=== PATIENT | male | born 1945 | race Caucasian/White ===

== ENCOUNTER 2020-10-09 10:09 | Outpatient (CLI) | payer MEDICARE, SELFPAY ==
--- NOTE | 2020-10-10 12:08 | WPDPFTINT ---
PFT Interpretation This is a pulmonary function test with spirometry, plethysmography and diffusing capacity. The test was performed and results interpreted in accordance with the 2019 and 2005 ATS/ERS Task Force guidelines respectively using the Dylon/Jessy reference equations. Findings: Spirometry: the contour the inspiratory and expiratory flow tracing are normal. The FVC is 3.94 L, 97% predicted. The FEV1 is 2.82 L, 108% predicted. The FEV1: FVC ratio is 72%. Plethysmography: The total lung capacity is 5.66 L, 92% predicted. The functional residual capacity is 2.82 L, 84% predicted. The residual volume is 1.56 L, 60% predicted. Diffusing capacity the absolute diffusion capacity is 19.9, 95% predicted. The diffusing capacity corrected for alveolar volume is 3.78, 110% predicted. Impression: The spirometry is normal without evidence of an obstructive abnormality. The lung volumes are normal. The diffusing capacity is normal. There are no prior studies for comparison
== END 2020-10-09 10:10 | disposition home or self-care (01) ==
PROVIDERS: PCP Internal Medicine; Visit Provider Internal Medicine
DX: R05 Cough (principal)
CPT/HCPCS: 94375; 94726; 94729

== ENCOUNTER 2022-11-25 09:36 | Outpatient (CLI) | payer MEDICARE, SELFPAY ==
--- NOTE | 2022-11-25 11:00 | NEURO_ITS ---
Impression: # Complains of numbness of lower extremities. History of lower back surgeries. # Absent peroneal responses bilaterally and poor posterior tibial responses. # Needle/EMG exam not requested. # Clinical correlation recommended. Findings suggestive of higher involvement. Motor Nerve Conduction Lower Extremities Peroneal Nerve Conduction Velocity (m/sec) Terminal Latency (msec) Response Voltage(mV) Popliteal space-Ankle Ankle Extensor Dig Brevis Popliteal space Ankle Right NR NR NR NR Left NR NR NR NR Tibial Nerve Conduction Velocity (m/sec) Terminal Latency (msec) Response Voltage(mV) Popliteal space-Ankle Ankle-Extensor Dig Brevis Popliteal space Ankle Right 35 4.2 .4 .3 Left 31 4.2 .7 .6 F-waves Peroneal Nerve (ms) Tibial Nerve (ms) Right NR 53.8 Left NR 55.9 Sensory Nerve Conduction Lower Extremities Sural Nerve Stimulation Terminal Latency (msec) Ankle Response Voltage (uV) Ankle Response Velocity (m/sec) Right NR NR NR Left NR NR NR Superficial Peroneal Nerve Stimulation Terminal Latency (msec) Ankle Response Voltage (uV) Ankle Response Velocity (m/sec) Right 4.0 5 40 Left NR NR NR MTDD
== END 2022-11-25 09:37 | disposition home or self-care (01) ==
LOC: ANHNEURO 09:39
PROVIDERS: PCP Internal Medicine; Visit Provider Internal Medicine
DX: R20.2 Paresthesia of skin (principal)
CPT/HCPCS: 95910

== ENCOUNTER 2024-05-06 13:25 | Outpatient (CLI) | payer MEDICARE, SELFPAY ==
--- NOTE | ~2024-05-06 | MR_ITS ---
EXAMINATION: MR knee LT wo con DATE: 05/06/2024 14:11 INDICATION: Left knee pain TECHNIQUE: Magnetic resonance imaging (MRI) of the left knee was performed without intravenous contra st. Sequences included coronal PD-weighted FSE, coronal PD-weighted FS FSE, sagittal T2-weighted FSE , sagittal PD-weighted FS FSE and axial PD weighted fat saturated FSE. COMPARISON: None. FINDINGS: Medial compartment: Longitudinal horizontal tear extending to the inferior articular surface at the posterior horn and po sterior body of the medial meniscus. Shallow chondral ulceration along the posterior weightbearing me dial femoral condyle. Mild chondral surface regularity along the lateral margin of the central weight bearing medial femoral condyle. Lateral compartment: Small tear of indeterminate morphology along the inner third of the anterior body of the lateral meni scus. Articular cartilage is normal. Patellofemoral compartment: Shallow chondral fissuring at the cephalad aspect of the patellar apical ridge. Trochlear cartilage a ppears normal. Ligaments and tendons: Anterior and posterior cruciate ligaments are normal. The medial collateral ligament and fibular magen ateral ligament complex are normal. Patellar tendon is normal. Mild tendinopathy and small enthesophy te at the patellar insertion of the distal quadriceps tendon. The visualized medial and lateral hamst ring tendons as well as the iliotibial band are normal. Fluid: Physiologic amount of fluid in the joint space. No loose osteochondral bodies identified. Osseous/other: Small bone island at the posterior lateral femoral condyle. Marrow signal is otherwise normal with no reactive edema, fracture or pathologic marrow replacing process. IMPRESSION: 1. Medial and lateral meniscal tears. 2. 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 Reviewed, dictated and finalized at location A. IMPRESSION: 1. Medial and lateral meniscal tears. 2. 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
== END 2024-05-06 13:26 ==
LOC: GOSHIMG 13:26
PROVIDERS: PCP Orthopaedic Surgery; Visit Provider Orthopaedic Surgery
DX: S83.282A Other tear of lateral meniscus, current injury, left knee, initial encounter (principal); S83.242A Other tear of medial meniscus, current injury, left knee, initial encounter; M17.12 Unilateral primary osteoarthritis, left knee; M94.262 Chondromalacia, left knee; X58.XXXA Exposure to other specified factors, initial encounter
CPT/HCPCS: 73721

== ENCOUNTER 2025-01-27 14:41 | Outpatient (CLI) | payer MEDICARE, SELFPAY ==
--- OUTSIDE RECORDS SUMMARY | 2025-01-27 14:45 | XMS_ITS | Clinical Summary ---
Author Organization [facility] Address [address], [address] [address] Phone Care Team Providers Care Senior Pastor Name Role Phone Ronni Zhang MD Primary Care Provider Ken Virk APRN, CAR SALESMAN Unavailable [phone] Allergies Active Allergy Reactions Criticality Noted Date Comments Penicillins Rash 07/06/2023 Medications atorvastatin (LIPITOR) 10 MG Tablet Take 10 mg by mouth daily. 06/12/2023 Active tamsulosin (FLOMAX) 0.4 MG Capsule Take 1 Capsule by mouth daily. 90 Capsule 03/10/2024 Active gabapentin (NEURONTIN) 100 MG Capsule Take 100 mg by mouth 2 times daily. 06/27/2024 Active Social History Tobacco Use Types Packs/Day Years Used Date Smoking Tobacco: Former Cigarettes Smokeless Tobacco: Never Tobacco Cessation:Counseling Given: No Sex and Gender Information Value Date Recorded Sex Assigned at Not on file Legal Sex Male 12:45 PM CDT Gender Identity Not on file Sexual Orientation Not on file Last Filed Vital Signs Vital Sign Reading Time Taken Comments Blood Pressure 121/68 07/26/2024 10:19 AM POWERHOUSE LABORER Pulse 87 07/26/2024 10:19 AM POWERHOUSE LABORER Temperature - - Respiratory Rate 20 07/26/2024 10:19 AM POWERHOUSE LABORER Oxygen Saturation 97% 07/26/2024 10:19 AM POWERHOUSE LABORER Inhaled Oxygen Concentration - - Weight 95.3 kg (210 lb) 07/26/2024 10:19 AM POWERHOUSE LABORER Height 175.3 cm (5' 9 ) 07/26/2024 10:19 AM POWERHOUSE LABORER Body Mass Index 31.01 07/26/2024 10:19 AM POWERHOUSE LABORER Plan of Treatment Upcoming Encounters Date Type Department Care Team (Late st Contact Info) Description 07/25/2025 1:15 PM POWERHOUSE LABORER Office Visit [facility] [address] [place] [address] Ken Virk, BRAKE PRESS OPERATOR, CAR SALESMAN [address] [place] [address] Health Maintenance Due Date Last Done Comments TdaP Immunization 1945 SARS-COV-2 Immunization ( season) 2024 06/10/2024, 07/10/2023, 07/08/2022, Additional history exists Pneumococcal Immunization (50+ years) Completed 01/04/2019, 05/18/2013 Hepatitis C Virus (HCV) Screening Completed 03/21/2021 Zoster Immunization Completed 02/06/2023, 12/10/2022, 04/21/2011 Respiratory Syncytial Virus (RSV) Immunization (Adult) Completed 06/25/2023 Influenza Immunization Completed , 06/25/2023, 07/08/2022, Additional history exists Hepatitis B Immunization Aged Out No longer eligible based on patient's age to complete this topic Meningococcal Immunization (ACWY) Aged Out No longer eligible based on patient's age to complete this topic Rotavirus Immunization Aged Out No lo nger eligible based on patient's age to complete this topic Insurance [id number] Care Teams Senior Pastor Relationship Specialty Start Date End Date Ronni Zhang MD PCP - General Internal Medicine 05/26/23 Ken Virk APRN, CAR SALESMAN [address] [place] [address] Nurse Practitioner Advanced Practice Nurse 07/20/23
--- OUTSIDE RECORDS SUMMARY | 2025-01-27 14:45 | XMS_ITS | Continuity of Care Document ---
Author Organization [facility] Address [address] [place] [address] [address] [place] [address] Phone Care Team Providers Care Wheelabrator Operator Name Role Phone Iram Abraham Unavailable Unavailable Procedures Procedure Date Eye Exam & Treatment Refraction Eye Exam & Treatment Refraction Eye Exam & Treatment Refraction Advance Directives Directive Yes / No Effective Date File Name No Information Encounters Encounter Description Practice Location Reason(s) For Visit Diagnoses Date Provider Providers Copied on Encounter [facility], [address] [place] [address] [address], [place], [place], [id number], tel:[phone] [facility] No Information 6-201 0 Leigh Atwood [address] , [address], [place], [place], [facility], . tel:[phone] [facility], [address] [place] [address] [address], [place], [place], [id number], [place] tel:[phone] [facility] No Information 2-200 9 Leigh Atwood [address] , [address], [place], [place], [facility], [place]. tel:[phone] [facility], [address] [place] [address] [address], [place], [place], [id number], [place] tel:[phone] [facility] No Information 0-200 8 Leigh Atwood [address] , [address], [place], [address], [place]. tel:[phone] Family History Family Member Type Diagnosis Age At Onset No Information Payers Payer name Insurance type Covered democrat ID Authoriza tion(s) [place] [id number] Social History Type Description Quantity Date Captured Comments Sex Male Smoking Status No Information Chief Complaint And Reason For Visit No Information Reason For Referral Reason For Referral No Information History Of Present Illness Encounter Date Complaint History Of Prese nt Illness No Information Functional Status Date Functional Assessmen t No Information Instructions Date Instruction Additional Infor mation No Information Assessments Type Assessment Date No Information Patient Care Teams Name Effective Dates (start - stop) Status Members No Information
--- OUTSIDE RECORDS SUMMARY | 2025-01-27 14:45 | XMS_ITS | Data Portability ---
[facility] [address] [facility] [place] [address] Care Team Providers Care Pharmacy Clinical Specialist Name Role Phone OLEG ZHANG Primary Care Provider [phone] Assessment Encounter Date Assessment Date Assessment LastModified by Organization Details LastModified Time 12/29/2023 12/29/2023 Dyslipidemia atorvastatin chronic pain gabapentin BPH tamsulosin chronic dermatitis hydrocortisone obtain old records continue current therapy all questions answered see me in 4 months. [email or web address] Not available 12/29/2023 22:14:15 04/26/2024 04/26/2024 healthy lifestyl e care instructions blood work chest x-ray Lexiscan stress test echo follow up with me in a month. EKG shows a normal sinus rhythm with no acute changes [email or web address] Not available 05/14/2024 20:21:35 05/24/2024 05/24/2024 obtain PFTs and LD CT reports complete echo follow up 3 months [email or web address] Not available 05/28/2024 20:50:01 06/28/2024 06/28/[address] he is due. 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 Gabapentin. Tamsulosin. Pulmonary consult. Healthy lifestyle care instructions. All questions He will follow up in 4 [email or web address] Not available 11/05/2024 22:17:41 Plan of Treatment Reminders Order Date Submit Date Provider Last Modified By Organization Details Last Modified Time Details Appointments ANY 15 2024 01:15P Cassandra Zhang MD Not available Not available Not available Lab CBC w/ auto diff 2023 024 [facility], [address] [facility] [address], [place], [address], 04/27/2024 08:42:27 CMP, serum or plasma 2023 024 [facility], [address] [facility] [address], [place], [address], 04/27/2024 08:42:25 lipid panel, serum 2023 024 [facility], [address] [facility] [address], [place], [address], 04/27/2024 08:42:26 Referral pulmonolo gist referral 2024 025 [facility]ology[facility], [address], [address], [place], [address], 01/04/2025 12:28:10 Procedures colonosco py screening (PROC) 2023 024 [facility], [address], [address], [place], [address], 10/25/2024 14:42:02 lexiscan cardiolit e stress test (PROC) 2023 024 [facility] (Outpatient Orders), [address], [place], [address], 05/13/2024 11:21:59 Surgeries None recorded. Imaging US, echocardi ogram 2023 024 [facility], [address], [address], [place], [address], 06/15/2024 22:00:10 XR, chest, 2 view [address] ([facility]), [address] [facility] [place], [place], [address], 04/26/2024 16:56:33 Medication Orders None recorded. Patient TargetsNo targets recorded. 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 Referring Physician: Oleg Zhang, Internal Medicine, Encounter Date: 11/01/2024 Results Created Date Observation Date Name Description Value Unit Range Abnormal Flag Note LastModifiedBy Organization Detail LastModifiedTime 04/26/20 24 04/27/2024 CMP14 glucose 100 mg/dL 70-99 above high normal Not Available [facility] ([facility]) [address] [place], [address], 04/27/2024 08:42:25 04/26/20 24 04/27/2024 CMP14 BUN 15 mg/dL 8-27 Not Available [facility] ([facility]) [address] [place], [address], 04/27/2024 08:42:25 04/26/20 24 04/27/2024 CMP14 creatinine 0.99 mg/dL 0.76-1 .27 Not Available [facility] ([facility]) [address] [place], [address], 04/27/2024 08:42:25 04/26/20 24 04/27/2024 CMP14 eGFR 77 mL/mi n/1.7 3 >59 Not Available [facility] ([facility]) [address] [place], [address], 04/27/2024 08:42:25 04/26/20 24 04/27/2024 CMP14 BUN/creatini ne ratio 15 10-24 Not Available [facility] ([facility]) [address] [facility] [place], [address], 04/27/2024 08:42:25 04/26/20 24 04/27/2024 CMP14 sodium 137 mmol/ L 134-14 4 Not Available [facility] ([facility]) [address] [facility] [place], [address], 04/27/2024 08:42:25 04/26/20 24 04/27/2024 CMP14 potassium 4.8 mmol/ L 3.5-5. 2 Not Available [facility] ([facility]) [address] [facility] [place], [address], 04/27/2024 08:42:25 04/26/20 24 04/27/2024 CMP14 chloride 101 mmol/ L 96-106 Not Available [facility] ([facility]) [address] [facility] [place], [address], 04/27/2024 08:42:25 04/26/20 24 04/27/2024 CMP14 carbon dioxide, total 24 mmol/ L 20-29 Not Available [facility] ([facility]) [address] [facility], [place], [address], 04/27/2024 08:42:25 04/26/20 24 04/27/2024 CMP14 calcium 9.7 mg/dL 8.6-10 .2 Not Available [facility] ([facility]) [address] [facility] [place], [address], 04/27/2024 08:42:25 04/26/20 24 04/27/2024 CMP14 protein, total 6.8 g/dL 6.0-8. 5 Not Available [facility] ([facility]) [address] [facility] [place], [address], 04/27/2024 08:42:25 04/26/20 24 04/27/2024 CMP14 albumin 4.1 g/dL 3.7-4. 7 Not Available [facility] ([facility]) [address] [facility] [place], [address], 04/27/2024 08:42:25 04/26/20 24 04/27/2024 CMP14 globulin, total 2.7 g/dL 1.5-4. 5 Not Available [facility] ([facility]) [address] [facility] [place], [address], 04/27/2024 08:42:25 04/26/20 24 04/27/2024 CMP14 bilirubin, total 1.0 mg/dL 0.0-1. 2 Not Available [facility] ([facility]) [address] [facility], [place], [address], 04/27/2024 08:42:25 04/26/20 24 04/27/2024 CMP14 alkaline phosphatase 103 IU/L 44-121 Not Available [facility] ([facility]) [address] [facility] [place], [address], 04/27/2024 08:42:25 04/26/20 24 04/27/2024 CMP14 AST (SGOT) 20 IU/L 0-40 Not Avail able [facility] ([facility]) [address] [facility] [place], [address], 04/27/2024 08:42:25 04/26/20 24 04/27/2024 CMP14 ALT (SGPT) 10 IU/L 0-44 Not Avail able [facility] ([facility]) [address] [facility] [place], [address], 04/27/2024 08:42:25 04/26/20 24 04/27/2024 LIPID PANEL cholesterol, total 175 mg/dL 100-19 9 Not Available [facility] ([facility]) [address] [facility] [place], [address], 04/27/2024 08:42:26 04/26/20 24 04/27/2024 LIPID PANEL triglyceride s 66 mg/dL 0-149 Not Available [facility] ([facility]) [address] [place], [address], 04/27/2024 08:42:26 04/26/20 24 04/27/2024 LIPID PANEL HDL cholesterol 54 mg/dL >39 Not Available [facility] ([facility]) [address] [place], [address], 04/27/2024 08:42:26 04/26/20 24 04/27/2024 LIPID PANEL VLDL cholesterol hanna 13 mg/dL 5-40 Not Available [facility] ([facility]) [address] [place], [address], 04/27/2024 08:42:26 04/26/20 24 04/27/2024 LIPID PANEL LDL chol calc ([facility]) 108 mg/dL 0-99 above high normal Not Available [facility] ([facility]) [address] [place], [address], 04/27/2024 08:42:26 04/26/20 24 04/27/2024 CBC WITH DIFFE RENTI AL/PL ATELE T WBC 6.3 x10e3 /uL 3.4-10 .8 Not Available [facility] ([facility]) [address] [place], [address], 04/27/2024 08:42:27 04/26/20 24 04/27/2024 CBC WITH DIFFE RENTI AL/PL ATELE T RBC 5.11 x10e6 /uL 4.14-5 .80 Not Available [facility] ([facility]) [address] [place], [address], 04/27/2024 08:42:27 04/26/20 24 04/27/2024 CBC WITH DIFFE RENTI AL/PL ATELE T hemoglobin 14.7 g/dL 13.0-1 7.7 Not Available [facility] ([facility]) [address] [facility], [place], [address], 04/27/2024 08:42:27 04/26/20 24 04/27/2024 CBC WITH DIFFE RENTI AL/PL ATELE T hematocrit 46.0 % 37.5-5 1.0 Not Available [facility] ([facility]) [address] [facility], [place], [address], 04/27/2024 08:42:27 04/26/20 24 04/27/2024 CBC WITH DIFFE RENTI AL/PL ATELE T MCV 90 fL 79-97 Not Available [facility] ([facility]) [address] [facility], [place], [address], 04/27/2024 08:42:27 04/26/20 24 04/27/2024 CBC WITH DIFFE RENTI AL/PL ATELE T MCH 28.8 pg 26.6-3 3.0 Not Available [facility] ([facility]) [address] [facility], [place], [address], 04/27/2024 08:42:27 04/26/20 24 04/27/2024 CBC WITH DIFFE RENTI AL/PL ATELE T MCHC 32.0 g/dL 31.5-3 5.7 Not Available [facility] ([facility]) [address] [facility], [place], [address], 04/27/2024 08:42:27 04/26/20 24 04/27/2024 CBC WITH DIFFE RENTI AL/PL ATELE T RDW 13.3 % 11.6-1 5.4 Not Available [facility] ([facility]) [address] [facility], [place], [address], 04/27/2024 08:42:27 04/26/20 24 04/27/2024 CBC WITH DIFFE RENTI AL/PL ATELE T platelets 203 x10e3 /uL 150-45 0 Not Available [facility] ([facility]) [address] [facility], [place], [address], 04/27/2024 08:42:27 04/26/20 24 04/27/2024 CBC WITH DIFFE RENTI AL/PL ATELE T neutrophils 63 % notest ab. Not Available [facility] ([facility]) [address] [facility], [place], [address], 04/27/2024 08:42:27 04/26/20 24 04/27/2024 CBC WITH DIFFE RENTI AL/PL ATELE T lymphs 27 % notest ab. Not Available [facility] ([facility]) [address] [facility], [place], [address], 04/27/2024 08:42:27 04/26/20 24 04/27/2024 CBC WITH DIFFE RENTI AL/PL ATELE T monocytes 8 % notest ab. Not Available [facility] ([facility]) [address] [facility], [place], [address], 04/27/2024 08:42:27 04/26/20 24 04/27/2024 CBC WITH DIFFE RENTI AL/PL ATELE T eos 1 % notest ab. Not Available [facility] ([facility]) [address] [facility], [place], [address], 04/27/2024 08:42:27 04/26/20 24 04/27/2024 CBC WITH DIFFE RENTI AL/PL ATELE T basos 1 % notest ab. Not Available [facility] ([facility]) [address] [facility], [place], [address], 04/27/2024 08:42:27 04/26/20 24 04/27/2024 CBC WITH DIFFE RENTI AL/PL ATELE T neutrophils (absolute) 3.9 x10e3 /uL 1.4-7. 0 Not Available [facility] ([facility]) [address] [facility], [place], [address], 04/27/2024 08:42:27 04/26/20 24 04/27/2024 CBC WITH DIFFE RENTI AL/PL ATELE T lymphs (absolute) 1.7 x10e3 /uL 0.7-3. 1 Not Available [facility] ([facility]) [address] [facility], [place], [address], 04/27/2024 08:42:27 04/26/20 24 04/27/2024 CBC WITH DIFFE RENTI AL/PL ATELE T monocytes(ab solute) 0.5 x10e3 /uL 0.1-0. 9 Not Available [facility] ([facility]) [address] [facility], [place], [address], 04/27/2024 08:42:27 04/26/20 24 04/27/2024 CBC WITH DIFFE RENTI AL/PL ATELE T eos (absolute) 0.1 x10e3 /uL 0.0-0. 4 Not Available [facility] ([facility]) [address] [facility], [place], [address], 04/27/2024 08:42:27 04/26/20 24 04/27/2024 CBC WITH DIFFE RENTI AL/PL ATELE T baso (absolute) 0.1 x10e3 /uL 0.0-0. 2 Not Available [facility] ([facility]) [address] [facility], [place], [address], 04/27/2024 08:42:27 04/26/20 24 04/27/2024 CBC WITH DIFFE RENTI AL/PL ATELE T immature granulocytes 0 % notest ab. Not Available [facility] ([facility]) [address] [facility], [place], [address], 04/27/2024 08:42:27 04/26/20 24 04/27/2024 CBC WITH DIFFE RENTI AL/PL ATELE T immature grans (abs) 0.0 x10e3 /uL 0.0-0. 1 Not Available [facility] ([facility]) [address], [place], [address], 04/27/2024 08:42:27 04/26/20 24 04/26/2024 XR, chest , 2 view No observ ation record ed. [address] [place], [address], 05/28/2024 20:48:51 05/13/20 kishor can cardi olite stres s test (PROC ) No observ ation record ed. [address] (Outpatient Orders) [address] [place], [address], 05/28/2024 20:48:36 05/13/20 24 05/13/2024 kishor can cardi olite stres s test (PROC ) No observ ation record ed. [facility] [address] [place], [address], 06/15/2024 17:03:15 06/15/20 24 06/14/2024 , echo ardio gram No observ ation record ed. [facility] [address], [place], [address], 06/28/2024 12:14:35 06/28/20 24 06/01/2018 colon oscop y proce dure (PROC ) No observ ation record ed. [facility] Not Available 2023 15:31:37 01/13/20 25 02/03/2023 MRI, cervi hanna spine , w/o contr ast No observ ation record ed. [facility] Not Available 2024 10:59:38 Result Notes None recorded. Problems Name Problem SNOMED Code Status Onset Date Resolution Date Notes Provider Name and Address Organization Details Recorded Time Hyperlipidemia 76748719 Active 2023 Oleg Zhang MD Attn: Swathi g,[address], [place], [address], [facility] 15:32:14 Benign prostatic hyperplasia without outflow obstruction 822340772 Active 2023 Oleg Zhang MD Attn: Swathi haas,[address], [place], [address], [facility] 4 15:32:15 Chronic low back pain 088799789 Active 2023 Oleg Zhang MD Attn: Swathi haas,[address], [place], [address], [facility] 4 15:32:29 Problem Notes None recorded. Procedures Surgical History Date Name Laterality Status Provider Name and Address Organization Details Recorded Time vasectomy completed RADHA John [facility] 12/29/2023 14:52:44 Imaging Results Imaging Date Name Status LastModified by Organization Details LastModified Time 04/26/2024 XR, chest, 2 view completed [address] [place], [address], 05/28/2024 20:48:51 05/13/2024 lexiscan cardiolite stress test (PROC) completed [address] (Outpatient Orders) [address] [place], [address], 05/28/2024 20:48:36 05/13/2024 lexiscan cardiolite stress test (PROC) completed [facility] [address] [place], [address], 06/15/2024 17:03:15 06/14/2024 US, echocardiogram completed [facility] [address], [place], [address], 06/28/2024 12:14:35 06/01/2018 colonoscopy procedure (PROC) completed [facility] Information not available 06/28/2024 15:31:37 02/03/2023 MRI, cervical spine, w/o contrast completed [facility] Information not available 01/12/2025 10:59:38 Procedure Notes None recorded. Medical Equipment None Reported. Allergies Allergen ID Allergen Name Allergen Category Reaction Reaction Severity Criticality Documentation Date Start Date Code Code System Note Provider Name and Address Organization Details Recorded Time 256714 Product containin g penicilli n (product) medicatio n rash Not available Not available 12/29/2023 [id number] Selena Kelley RADHA martínez, [place] - [facility] 4 14:52:40 Medications Name Sig Start Date Stop Date Status Note LastModified by Organization Details LastModified Time prednisone 10 mg tablet TAKE 1 TABLET BY MOUTH TWICE A DAY 05/24 completed Not Available Not Available Not Available atorvastati n 10 mg tablet TAKE 1 TABLET BY MOUTH EVERY DAY 2024 active Not Available Not Available Not Avai lable azithromyci n 250 mg tablet TAKE 2 TABLETS BY MOUTH TODAY, THEN TAKE 1 TABLET DAILY FOR 4 DAYS DIRECTED active Not Available Not Available No t Available clobetasol 0.05 % topical cream APPLY TO AFFECTED AREA TWICE A DAY FOR 14 DAYS active PRN Not Available Not Available No t Available meloxicam 7.5 mg tablet TAKE 1 TABLET BY MOUTH TWICE A DAY FOR 30 DAYS 05/24 completed Not Available Not Available Not Available tamsulosin 0.4 mg capsule TAKE 1 CAPSULE BY MOUTH EVERY DAY 2024 active Not Available Not Available Not Avai lable cephalexin 500 mg capsule TAKE 1 CAPSULE BY MOUTH EVERY 6 HOURS UNTIL GONE 12/28 completed Not Available Not Available Not Available hydrocortis one 2.5 % topical cream APPLY 1 APPLICATI ON ONTO THE FACE RASH TWICE DAILY NEEDED active Not Available Not Available No t Available gabapentin 100 mg capsule TAKE 1 CAPSULE BY MOUTH TWICE A DAY active Not Available Not Available No t Available methylpredn isolone 4 mg tablets in a dose pack TAKE 6 TABLETS ON DAY 1 DIRECTED ON PACKAGE AND DECREASE BY 1 TAB EACH DAY FOR A TOTAL OF 6 DAYS active Not Available Not Available No t Available sodium fluoride 1.1 % dental paste USE PEA-SIZED AMOUNT TO BRUSH TEETH MORNING AND EVENING. SPIT OUT EXCESS. DO NOT SWALLOW active Not Available Not Available No t Available Vitals Date Recorded Body height Body mass index (BMI) Body weight Heart rate Oxygen saturation Oxygen saturation in Arterial blood by Pulse oximetry Systolic blood pressure Diastolic blood pressure Provider Name and Address Organization Details Last Updated DateTime 4 175.9 cm 30.1 kg/m2 92107.4 4 g 67 /min 97 % 97 % 126 mm[Hg] 74 mm[Hg] RADHA John [facility] 4 14:38:58 Date Recorded Body height Body mass index (BMI) Body weight Heart rate Oxygen saturation Oxygen saturation in Arterial blood by Pulse oximetry Systolic blood pressure Diastolic blood pressure Provider Name and Address Organization Details Last Updated DateTime 4 175.9 cm 30.3 kg/m2 17837.6 2 g 79 /min 97 % 97 % 102 mm[Hg] 64 mm[Hg] Amaya Calle MA [facility] 4 14:06:07 Date Recorded Body height Body mass index (BMI) Body weight Heart rate Oxygen saturation Oxygen saturation in Arterial blood by Pulse oximetry Systolic blood pressure Diastolic blood pressure Provider Name and Address Organization Details Last Updated DateTime 4 175.9 cm 30.1 kg/m2 32126.8 7 g 79 /min 94 % 94 % 136 mm[Hg] 66 mm[Hg] Rosa Cr MA [facility] 4 14:08:44 Date Recorded Body height Body mass index (BMI) Body weight Heart rate Oxygen saturation Oxygen saturation in Arterial blood by Pulse oximetry Systolic blood pressure Diastolic blood pressure Provider Name and Address Organization Details Last Updated DateTime 4 175.9 cm 30.1 kg/m2 49214.6 5 g 78 /min 97 % 97 % 118 mm[Hg] 62 mm[Hg] Rosa Cr MA [facility] 4 14:16:15 Date Recorded Body height Body mass index (BMI) Body weight Heart rate Oxygen saturation Oxygen saturation in Arterial blood by Pulse oximetry Systolic blood pressure Diastolic blood pressure Provider Name and Address Organization Details Last Updated DateTime 5 175.9 cm 30.2 kg/m2 38153.3 1 g 84 /min 98 % 98 % 120 mm[Hg] 68 mm[Hg] Amaya Calle MA [facility] 5 14:26:12 Social History Question Answer Notes LastModified by Organizat ion Details LastModified Time Tobacco Smoking Status Former Smoker quit 40 yrs ago 03/20/1983 last cigarette RADHA John null, [facility] 12/29/2023 14:34:43 Do You Have An Advance Directive? Yes Information not available 04/26/2024 What Is Your Level Of Alcohol Consumption? None Information not available 04/26/2024 Are You Blind Or Do You Have Difficulty Seeing? No Information not available 04/26/2024 What Is Your Level Of Caffeine Consumption? Moderate Coffee, Soda, Tea Information not available 04/26/2024 In The 14 Days Before Symptom Onset, Have You Had Close Contact With A Laboratory-confir med COVID-19 While That Case Was Ill? No Information not available 04/26/2024 In The 14 Days Before Symptom Onset, Have You Had Close Contact With A Person Who Is Under Investigation For COVID-19 While That Person Was Ill? No Information not available 04/26/2024 Have You Been To An Area Known To Be High Risk For COVID-19? No Information not available 04/26/2024 Are You Currently Employed? No Information not available 04/26/2024 Are You Deaf Or Do You Have Serious Difficulty Hearing? No Information not available 04/26/2024 What Type Of Diet Are You Following? REGULAR Information not available 04/26/2024 Are There Any Guns Present In Your Home? No Information not available 04/26/2024 What Was The Date Of Your Most Recent Tobacco Screening? 11/01/2024 Information not available 11/01/2024 Do You Use Your Seat Belt Or Car Seat Routinely? Yes Information not available 04/26/2024 Do You Have Smoke And Carbon Monoxide Detectors In Your Home? Yes Information not available 04/26/2024 How Much Tobacco Do You Smoke? No Information not available 12/29/2023 Do You Use Any Illicit Or Recreational Drugs? No Information not available 04/26/2024 Do You Use Sunscreen Routinely? Yes Information not available 04/26/2024 Has Tobacco Cessation Counseling Been Provided? No Information not available 04/26/2024 How Many Years Have You Smoked Tobacco? 20 Information not available 12/29/2023 Do You Or Have You Ever Used Any Other Forms Of Tobacco Or Nicotine? No Information not available 04/26/2024 Sex: Male Functional Status Question Answer Note LastModified by Organization D etails LastModified Time Are you able to care for yourself? Yes Information n ot available 04/26/2024 What is your exercise level? None Information not available 04/26/2024 Mental Status None recorded. Family History Nothing Reported. Medical History No medical history recorded. Immunizations Vaccine Type Date Status Note Provider Nam e and Address Organization Details Recorded Time zoster recombinant 3 completed Selena Kelley R[place], [place] [facility] 12/29/2023 14:53:00 zoster recombinant 3 completed Selena Kelley [place] [facility] 12/29/2023 14:53:00 Influenza, high-dose, quadrivalent, PF 1 completed Selena Kelley [place] [facility] 12/29/2023 14:53:00 Influenza, adjuvanted, quadrivalent, PF 3 completed Selena Kelley [place] [facility] 12/29/2023 14:53:00 Influenza, adjuvanted, quadrivalent, PF 2 completed VINCENT JohnA [place] [facility] 12/29/2023 14:53:00 COVID-19, mRNA, LNP-S, PF, 100 mcg/0.5mL dose or 50 mcg/0.25mL dose 1 completed Selena Kelley [place] [facility] 12/29/2023 14:53:00 COVID-19, mRNA, LNP-S, PF, 100 mcg/0.5mL dose or 50 mcg/0.25mL dose 1 completed [place]A [place] [facility] 12/29/2023 14:53:00 COVID-19, mRNA, LNP-S, PF, 100 mcg/0.5mL dose or 50 mcg/0.25mL dose 2 completed Selena Kelley [place] [facility] 12/29/2023 14:53:00 COVID-19, mRNA, LNP-S, PF, 100 mcg/0.5mL dose or 50 mcg/0.25mL dose 1 completed VINCENT JohnA [place]aur[place], [place] [facility] 12/29/2023 14:53:00 COVID-19, mRNA, LNP-S, bivalent, PF, 50 mcg/0.5 mL or 25mcg/0.25 mL dose 2 completed Selena Kelley RMEvita martínez, [place] [facility] 12/29/2023 14:53:00 RSV, bivalent, protein subunit RSVpreF, diluent reconstituted, 0.5 mL, PF 3 completed RADHA [place] [facility] 12/29/2023 14:53:00 COVID-19, mRNA, LNP-S, PF, daniel-sucrose, 30 mcg/0.3 mL 3 completed Selena Kelley RMA [place] [facility] 12/29/2023 14:53:00 pneumococcal polysaccharide PPV23 3 completed Selena Kelley [place] [facility] 12/29/2023 14:53:00 Pneumococcal conjugate PCV 13 9 completed Selena Kelley [place] [facility] 12/29/2023 14:53:00 zoster live 1 completed RADHA [place] [facility] 12/29/2023 14:53:00 Influenza, high-dose, trivalent, PF 4 completed Selena Kelley RMA [place], [place] [facility] 12/29/2023 14:53:00 Influenza, high-dose, trivalent, PF 7 completed Selena Kelley R[place] [facility] 12/29/2023 14:53:00 Influenza, high-dose, trivalent, PF 6 completed Selena Kelley RMEv[place] [facility] 12/29/2023 14:53:00 Influenza, high-dose, trivalent, PF 8 completed Selena Kelley [place] [facility] 12/29/2023 14:53:00 Influenza, split virus, quadrivalent, PF 5 completed Selena Kelley [place] [facility] 12/29/2023 14:53:00 COVID-19, mRNA, LNP-S, PF, daniel-sucrose, 30 mcg/0.3 mL 4 completed Alannah Garnica [place] [facility] 11/01/2024 10:00:53 Influenza, high-dose, trivalent, PF 4 completed Alannah Garnica [place] [facility] 11/01/2024 10:00:53 Past Encounters Encounter ID Performer Location Encounter Start Date Encounter Closed Date Diagnosis/Indication Diagnosis SNOMED-CT Code Diagnosis ICD10 Code Diagnosis Note [id number] Oleg Zhang MD [facility] (Adult Med) [address] [place] [address] [phone] 12/29/2023 14:09:30 12/29/2023 15:53:43 Hyperlipidemia 15377059 E78.5 Benign pro static hyperplasia without outflow obstruction 394595741 N40.0 Chronic low back pain 27 9897034 M54.50 [id number] Oleg Zhang MD [facility] (Adult Med) [address] [place] [address] [id number] 04/26/2024 13:51:17 04/26/2024 15:21:47 Obesity 278553565 E66.8 Hyperlipidemia 08995445 E78.5 Chest pain 96094371 R07. 9 [id number] [facility] [address] [place] [address] [id number] 05/24/2024 13:48:53 05/24/2024 14:44:58 Dyspnea 767109205 R06.00 Hyperlipidemia 97792623 E78.5 Chronic low back pain 27 4236391 M54.50 Benign pro static hyperplasia without outflow obstruction 571229113 N40.0 [id number] Oleg Zhang MD [facility] (Adult Med) [address] [place] [address] [id number] [id number] 06/28/2024 14:00:23 06/28/2024 15:09:11 Screening for malignant neoplasm of colon 146123392 Z12.11 Hyperlipidemia 00778031 E78.5 Chronic low back pain 27 2063622 M54.50 Benign pro static hyperplasia without outflow obstruction 957804450 N40.0 [id number] Oleg Zhang MD [facility] (Adult Med) [address] [place] [address] [id number] 11/01/2024 14:16:39 11/01/2024 15:01:47 Body mass index 30+ - obesity 656953909 Z68.30 Obesity 473395697 E66.9 Chronic cough 86842903 R 05.3 Hyperlipidemia 84784567 E78.5 Chronic low back pain 27 0578921 M54.50 Benign pro static hyperplasia without outflow obstruction 902597323 N40.0 Health Concerns Section Related Observation LastModified by Organization Detai ls LastModified Time None Recorded Concern Status LastModified by Organization Details LastModified Time None Recorded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
--- OUTSIDE RECORDS SUMMARY | 2025-01-27 14:45 | XMS_ITS | Continuity of Care Document ---
Author Organization [facility] Address [address] [place] [address] Phone Care Team Providers Care Starter Cup Powder Mixer Name Role Phone Grayson Guy MD Unavailable Unavailable Allergies, Adverse Reactions, Alerts Substance Reaction Status Criticality PENICILLIN Rash Active No Information Medications Medication Instructions Dosage Effective Dates (start - stop) Status Comments [place] 5 mg-325 mg tablet take 1- 2 tablets by oral route every 6 hours as needed for pain - Active meloxicam 15 mg tablet take 1 tablet (15 MG) by oral route every day with food - Active atorvastatin 10 mg tablet take 1 tablet by oral route every day 10 MG - Active Procedures Procedure Date POSTOP FOLLOW-UP VISIT INCISE FINGER TENDON SHEATH INCISE FINGER TENDON SHEATH OFFICE/OUTPATIENT VISIT EST OFFICE/OUTPATIENT VISIT EST RADEX PATIENCE COMPL MINIMUM 2 VIEWS 018 RADEX PATIENCE COMPL MINIMUM 2 VIEWS 018 RADEX PELVIS 1/2 VIEWS OFFICE/OUTPATIENT VISIT NEW Advance Directives Directive Yes / No Effective Date File Name No Information Encounters Encounter Description Practice Location Reason(s) For Visit Diagnoses Date Provider Providers Copied on Encounter [facility] , [address] [facility] [address], [place], [address], [place] tel:[phone] [facility] Trigger finger, left index finger 9 Malena Galicia. [address] [place], [place], [id number] . tel: [phone] [facility] , [address], [address], [place] tel: [phone] [facility] No Information January-0 9 Malena Galicia. [address] [facility], [place], [place], [id number] . tel: [phone] [facility] , [address], [address], tel: [phone] [facility] Trigger finger, left index finger Apr-2 9 Malena Galicia. [address] [facility], [place], [place], [address] . tel: [phone] [facility] , [address], [address], [place] tel: [phone] [facility] Trigger finger, right index finger Dec- 9 Malena Galicia. [address] [facility], [place], [place], [address] . tel: [phone] OFFICE/OUTPAT IENT VISIT EST [facility] , [address], [address], [place] tel: [phone] [facility] Trigger index finger of right hand Dec- 9 Malena Galicia. [address] [facility], [place], [place], [address] . tel: [phone] OFFICE/OUTPAT IENT VISIT EST [facility] , [address], [address], [place] tel: [phone] [facility] Body mass index (BMI) 27.0-27.9, adultTrigger index finger of right handTrigger ring finger of right handTrigger finger of left thumbTrigger index finger of left hand 8 Malena Galicia. [address] [place], [place], [id number] . tel: [phone] OFFICE/OUTPAT IENT VISIT NEW [facility] , [address], [address], [place] tel: [phone] [facility] Pain in right shoulderPain in left shoulderPain in right hipStatus post replacement of right shoulder joint 8 Barrie Johns. [address], [place], [place], [address] . tel: [phone] Referring Provider: Ronni Polanco, [address], [place], [address] . tel:[phone] Family History Family Member Type Diagnosis Age At Onset Mother Problem (finding) hypertension Payers Payer name Insurance type Covered republican ID Authoriza tihao(s) AARP Medicare Complete PPO [id number] Social History Type Description Quantity Date Captured Comments Alcohol Use Details Unknown Caffeine Use Details Unknown Tobacco Use Status Smoking Status No Information Sex Male Chief Complaint And Reason For Visit No Information Reason For Referral Reason For Referral No Information Plan Of Treatment Date Type Action Status Referral Ordered: RADEX PELVIS 1/2 VIEWS ordered Referral Ordered: RADEX PATIENCE COMPL MINIMUM 2 VIEWS LT ordered Referral Ordered: RADEX PATIENCE COMPL MINIMUM 2 VIEWS RT ordered Future Order: Lab Order ZULEMA ([id number]), O rdered on: Ordered Future Order: Lab Order CCP Anti bodies IgG/IgA ([id number]), Ordered on: Ordered Future Order: Lab Order C-Reacti ve Protein, Quant ([id number]), Ordered on: Ordered Future Order: Lab Order Rheumato id Factor ([id number]), Ordered on: Ordered Future Order: Lab Order Sed rate ([id number]), Ordered on: Ordered History Of Present Illness Encounter Date Complaint History Of Prese nt Illness No Information Functional Status Date Functional Assessmen t No Information Instructions Date Instruction Additional Infor mation Activity as tolerated. Related t o Trigger finger, left index finger Giving encouragement to exercise Related to Body mass index (BMI) 27.0-27.9, adult Discussed treatment options Rela taylor to Status post replacement of right shoulder joint Call for increase in pain Relate d to Status post replacement of right shoulder joint Assessments Type Assessment Date assessment Trigger finger, left index delonte biggs Patient Care Teams Name Effective Dates (start - stop) Status Members No Information
--- OUTSIDE RECORDS SUMMARY | 2025-01-27 14:45 | XMS_ITS | Clinical Summary ---
Author Organization [facility] Address [address] [place] [address] Care Team Providers Care Vacuum Tester Cans Name Role Phone Unavailable Primary Care Provider Unavailabl e Source Comments [facility],non-owned Affiliates and Associated Physician Practices is amultiple site organization consisting of ambulatory clinics and hospital sitesin [place], [place], [place] and [place]. This disclosure is being madepursuant to the Care Everywhere program and may not contain all information available regarding this patient. 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 Gender Identity Not on file Sexual Orientation Not on file Plan of Treatment Health Maintenance Due Date Last Done Comments DTAP/TDAP/TD VACCINES (1 - Tdap) 1962 PNEUMOCOCCAL VACCINE 50+ (1 of 1 - PCV) 1993 ZOSTER VACCINE (1 of 2) 1993 Respiratory Syncytial Virus (RSV) Vaccine Pt: or over 60 yrs (1 - 1-dose 75+ series) 2018 COVID-19 VACCINE ( season) 2024 12/28/2020, 11/30/2020 DEPRESSION SCREENING 09/21/2024 INFLUENZA VACCINE (Season Ended) 2025 08/02/2019, 07/13/2018, 07/09/2017, Additional history exists HEPATITIS B VACCINE Aged Out No longe r eligible based on patient's age to complete this topic HIB VACCINE Aged Out No longer eligi ble based on patient's age to complete this topic HPV VACCINE Aged Out No longer eligi ble based on patient's age to complete this topic MENINGOCOCCAL (Group B) VACCINE SHARED DECISION-MAKING Aged Out No longer eligible based on patient's age to complete this topic MENINGOCOCCAL GROUPS A/C/Y/W VACCINE Aged Out No longer eligible based on patient's age to complete this topic Insurance
--- NOTE | 2025-01-27 16:13 | WPDSIXMINUTE ---
Six Minute Walk Procedure Procedure Performed Pulmonary Stress Test (6 min walk) Six Minute Walk Six Minute Walk: This is a 6 minute walk test. The test was performed and interpreted in accordance with the 2014 ERS/ATS task force guidelines. Findings: The patient's resting room air oxygen saturation measured by pulse oximetry was 96%, the heart rate was 80 bpm, and the modified Hernan dyspnea score was 0. Patient ambulated for 366 meters and oxygen saturation remained 95 to 96%. At the end of the study the heart rate was 108 bpm and the modified Hernan dyspnea score was 1. The patient did not qualify for supplemental oxygen at rest or with ambulation. There are no prior studies for comparison.
--- NOTE | 2025-01-27 16:14 | WPDPFTINT ---
PFT Procedure Performed PFT Procedure Performed Spirometry with Pre/Post Bronchodilator Plethysmography (Lung Vol) Diffusing Cap (DLCO) Flow Vol Loop PFT Interpretation This is a pulmonary function test with pre and post-bronchodilator spirometry, plethysmography and diffusing capacity. The test was performed and results interpreted in accordance with the 2019 and 2005 ATS/ERS Task Force guidelines respectively using the Global Lung Function Initiative-2012 reference equations. Patient demonstrated good effort and cooperation. Reproducibility criteria were met. The quality of the pre bronchodilator spirometry maneuver was Grade B and post bronchodilator spirometry maneuver was Grade B. Of note, the patient was very lightheaded with spirometry pre and post therefore only obtain 2 trials of each. Findings: Spirometry: The contour the inspiratory and expiratory flow tracing are normal. The pre bronchodilator FVC is 3.45 L, 93% predicted. The pre bronchodilator FEV1 is 2.39 L, 87% predicted. The pre bronchodilator FEV1: FVC ratio 69%. The post bronchodilator FVC is 3.38 L, representing a 2% decrease. The post bronchodilator FEV1 is 2.51 L, representing a 5% increase. The post bronchodilator FEV1: FVC ratio 74%. Plethysmography: The total lung capacity 5.80 L, 85% predicted. The functional residual capacity is 3.05 L, 82% predicted. The residual volume is 1.94 L, 74% predicted. Diffusing capacity: The diffusing capacity unadjusted for hemoglobin and carboxyhemoglobin is 18.3, 79% predicted. The diffusing capacity adjusted for alveolar volume is 3.74, 102% predicted. In comparison to previous pulmonary function testing on 10/09/2020 in which only pre bronchodilator spirometry was performed. The pre bronchodilator FVC is unchanged from 3.94 L to 3.45 L. The pre bronchodilator FEV1 has decreased from 2.82 L to 2.39 L. The total lung capacity is unchanged from 5.66 L to 5.80 L. The functional residual capacity is unchanged from 2.82 L to 3.05 L. The residual volume is increased from 1.56 L to 1.94 L. The diffusing capacity unadjusted for hemoglobin and carboxyhemoglobin is unchanged from 19.9 to 18.3. The diffusing capacity adjusted for alveolar volume is unchanged from 3.78 to 3.74. Impression: The spirometry is normal without evidence of an obstructive abnormality. There is no significant improvement after inhaling a single dose of albuterol. The lung volumes are normal. The diffusing capacity is normal. In comparison to previous pulmonary function testing on 10/09/2020 there has been a greater than anticipated time dependent decrease in the FEV1. There has been a greater than anticipated time dependent increase in the residual volume with no significant change in the FVC, total lung capacity, functional residual capacity or diffusing capacity. Clinical correlation is recommended.
== END 2025-01-27 14:42 | disposition home or self-care (01) ==
PROVIDERS: PCP Internal Medicine; Visit Provider Physician Assistant
DX: R06.09 Other forms of dyspnea (principal)
CPT/HCPCS: 94060; 94618; 94726; 94729

== ENCOUNTER 2025-02-20 08:11 | Day surgery (SDC) | payer MEDICARE, SELFPAY ==
[2024-10-04 09:40] VITALS: BMI 33.0
[2025-02-02 14:38] VITALS: BMI 30.2
--- NOTE | 2025-02-20 07:05 | WPDANESEPPF ---
Anes - Initial Pre Proc Eval Procedure: Operation Date: 02/20/25 10:00 Proposed Procedures p Screening Colonoscopy - Luis Alberto Gaines MD Date/Time: 02/20/25 07:05 Surgeon: Luis Alberto Gaines MD Pre Op Diagnosis: Neoplasm Screening Patient Data Age: 79 Gender: M Height: 1.75 m Weight: 93 kg Allergies Allergy/AdvReac Type Severity Reaction Status Date / Time Penicillins Allergy Mild RASH Verified 02/20/25 08:55 Home Medications ?Medication ?Instructions ?Recorded ?Confirmed ?Type atorvastatin 10 mg tablet 10 mg PO DAILY 01/19/24 02/20/25 History gabapentin 100 mg capsule 100 mg PO BID 01/19/24 02/20/25 History tamsulosin 0.4 mg capsule 0.4 mg PO DAILY 01/19/24 02/20/25 History azelastine 137 mcg (0.1 %) nasal 1 spray intranasal Q12H #30 mL 01/04/25 02/20/25 Rx spray fluticasone propionate 50 1 spray intranasal BID #16 grams 01/04/25 02/20/25 Rx mcg/actuation nasal spray,suspension (Flonase Allergy Relief) Patient hx anesthesia problems: none Family hx anesthesia problems: none Results Review: All pre-operative results and documents have been reviewed as part of the pre-operative evaluation. [facility] Past Medical History Medical History High cholesterol Surgical History Surgical History History of shoulder replacement right History of carpal tunnel release History of back surgery Family History Family History Father No problems noted. Mother No problems noted. Sibling No problems noted. Other Colon cancer Social History Social History Smoking status: Former smoker Second hand tobacco smoke exposure: No Smoking end date: 03/20/83 Alcohol intake: current Alcohol use details: occasionally Substance use: never Substance use type: does not use Do You Feel Safe in your Home?: Yes Lack of Transportation: No Lack of Food: Never True Current Housing: I Have Housing Concerned About Future Housing: No Difficulty Paying Gas/Electric Bills: No Difficulty Paying for Meds: No Currently Unemployed: No Education: High School Diploma/GED Difficulty w/ Childcare or Family Care: No Living arrangements: with family Occupation/Education: retired Additional occupation/education comments: disability/retired [employer] Gender identity (if verbalized by the patient): Male Anes - Eval Final PreProcedure Day of Procedure 02/20/25 07:05 Patient weight: overweight Heart: regular rate and rhythm Lungs: clear to auscultation Airway: Mallampati scale class II Neurological: alert and oriented Last oral intake: >/= 8 hours ASA classification: II Emergent: no Anesthetic plan: proceed Anesthesia type and monitoring: general GIVS and standard monitoring Results Review: All pre-operative results and documents have been reviewed as part of the pre-operative evaluation. Informed Consent: The patient's anesthetic plan and its attendant risks and benefits were discussed with the patient/family/POA. Questions were solicited and answers provided to the satisfaction of the patient/family/POA.
--- OUTSIDE RECORDS SUMMARY | 2025-02-20 08:37 | XMS_ITS | Clinical Summary ---
Author Organization [facility] Address [address] [place] [address] Care Team Providers Care Scientific Informatics Project Leader Name Role Phone Unavailable Primary Care Provider Unavailabl e Source Comments [facility],non-owned Affiliates and Associated Physician Practices is amultiple site organization consisting of ambulatory clinics and hospital sitesin [place], [place], [place] and [place]. This disclosure is being madepursuant to the Care Everywhere program and may not contain all information available regarding this patient. 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
--- OUTSIDE RECORDS SUMMARY | 2025-02-20 08:37 | XMS_ITS | Clinical Summary ---
Author Organization [facility] Address [address], [address] [address] Phone Care Team Providers Care Email Production Consultant Name Role Phone oRnni Zhang MD Primary Care Provider Ken Virk APRN, GEOTECHNICAL OPERATING ENGINEER Unavailable [phone] Allergies Active Allergy Reactions Criticality Noted Date [...] Comments Blood Pressure 121/68 07/26/2024 10:19 AM GOODYEAR STITCHER Pulse 87 07/26/2024 10:19 AM GOODYEAR STITCHER Temperature - - Respiratory Rate 20 07/26/2024 10:19 AM GOODYEAR STITCHER Oxygen Saturation 97% 07/26/2024 10:19 AM GOODYEAR STITCHER Inhaled Oxygen Concentration - - Weight 95.3 kg (210 lb) 07/26/2024 10:19 AM GOODYEAR STITCHER Height 175.3 cm (5' 9) 07/26/2024 10:19 AM GOODYEAR STITCHER Body Mass Index 31.01 07/26/2024 10:19 AM GOODYEAR STITCHER Plan of Treatment Upcoming Encounters Date Type Department Care Team (Late st Contact Info) Description 07/25/2025 1:15 PM GOODYEAR STITCHER Office Visit [facility] [address] [place] [address] Ken Virk, TABLE WORKER PACKAGER, GEOTECHNICAL OPERATING ENGINEER [address] [place] [address] Health Maintenance Due Date Last Done Comments [...] to complete this topic Insurance [facility]IC[facility] Care Teams Email Production Consultant Relationship Specialty Start Date End Date Ronni Zhang MD PCP - General Internal Medicine 05/26/23 Ken Virk APRN, GEOTECHNICAL OPERATING ENGINEER [address] [place] [address] Nurse Practitioner Advanced Practice Nurse 07/20/23
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
[2025-02-20 08:42] VITALS: BP 139/75; PULSE 81; RESP 18; TEMP 36.9; O2SAT 96
[2025-02-20] MEDS: LACTATED RINGERS 1,000 ML 150 ML IV CONT (08:52)
--- NOTE | 2025-02-20 09:32 | PM.IMHP ---
H&P: HPI History of Present Illness Date/Time: 02/20/25 09:32 Chief Complaint: History of colon polyps Narrative: The patient has a history of colonic polyps, the last colonoscopy was approximately 3 years ago. Review of Systems Review of Systems: All systems reviewed & are unremarkable except as noted in HPI and below PMFSH Past Medical History Medical History High cholesterol Surgical History Surgical History History of shoulder replacement right History of carpal tunnel release History of back surgery Family History Family History Father No problems noted. Mother No problems noted. Sibling No problems noted. Other Colon cancer Social History Social History Smoking status: Former smoker Second hand tobacco smoke exposure: No Smoking end date: 03/20/83 Alcohol intake: current Alcohol use details: occasionally Substance use: never Substance use type: does not use Do You Feel Safe in your Home?: Yes Lack of Transportation: No Lack of Food: Never True Current Housing: I Have Housing Concerned About Future Housing: No Difficulty Paying Gas/Electric Bills: No Difficulty Paying for Meds: No Currently Unemployed: No Education: High School Diploma/GED Difficulty w/ Childcare or Family Care: No Living arrangements: with family Occupation/Education: retired Additional occupation/education comments: disability/retired [employer] Gender identity (if verbalized by the patient): Male Meds Home Medications and Allergies Home Medications ?Medication ?Instructions ?Recorded ?Confirmed ?Type atorvastatin 10 mg tablet 10 mg PO DAILY 01/19/24 02/20/25 History gabapentin 100 mg capsule 100 mg PO BID 01/19/24 02/20/25 History tamsulosin 0.4 mg capsule 0.4 mg PO DAILY 01/19/24 02/20/25 History azelastine 137 mcg (0.1 %) nasal 1 spray intranasal Q12H #30 mL 01/04/25 02/20/25 Rx spray fluticasone propionate 50 1 spray intranasal BID #16 grams 01/04/25 02/20/25 Rx mcg/actuation nasal spray,suspension (Flonase Allergy Relief) Allergies Allergy/AdvReac Type Severity Reaction Status Date / Time Penicillins Allergy Mild RASH Verified 02/20/25 08:55 Vital Signs Vital Signs - 24 hr 02/20/25 08:42 Temperature 98.5 F Pulse Rate 81 Respiratory Rate 18 Blood Pressure 139/75 Pulse Oximetry 96 Oxygen Delivery Room Air Exam Const: General: cooperative and healthy appearing Resp: Effort & Inspection: normal respiratory effort and able to speak in complete sentences Auscultation: clear to auscultation bilaterally Cardio: Rate: regular rate Rhythm: regular rhythm GI: Inspection: normal to inspection GI Palp: No No hepatosplenomegaly present Auscultation: normal bowel sounds Rectal Exam: deferred Skin: General skin exam: normal color Psych: Appearance: grossly normal Mental Status: mental status grossly normal Assessment and Plan Assessment and plan (1) History of colonic polyps: Code(s): Z86.0100 - Personal history of colon polyps, unspecified Status: Acute Assessment and Plan: The patient is deemed a good candidate for the procedure. Consent signed. Will proceed.
[2025-02-20] MEDS: SIMETHICONE ORAL SUSPENSION 20 MG/0.3 ML 30 ML BOTTLE 0.6 ML IRRIGATION (10:21)
[2025-02-20 10:35] VITALS: BP 88/58; PULSE 71; RESP 16; O2SAT 97
[2025-02-20 10:45] VITALS: BP 95/66; PULSE 70; RESP 16; O2SAT 97
[2025-02-20 10:55] VITALS: BP 110/80; PULSE 69; RESP 16; O2SAT 99
--- NOTE | 2025-02-20 11:42 | WPDANESPN ---
Anes - Prog Note Post-Op Date/Time: 02/20/25 11:42 Cardiovascular status: normal Respiratory status: normal Airway patency: baseline Mental status: baseline Post-Op hydration status: normal Vital Signs: Last Vital Signs Temp 36.9 C 02/20/25 08:42 Pulse 69 02/20/25 10:55 Resp 16 02/20/25 10:55 BP 110/80 02/20/25 10:55 Pulse Ox 99 02/20/25 10:55 O2 Del Method Room Air 02/20/25 10:55 Pain Score (VAS): 0 I/O: Intake & Output 02/19/25 02/20/25 02/20/25 23:59 07:59 15:59 Intake Total 400 Balance 400 Post-procedural complaints: none Patient Feedback: Patient satisfied with anesthetic care. Other Findings: Patient vital signs back to baseline. Patient denies nausea and vomiting. Patient's pain under control. Patient OK for discharge.
== END 2025-02-20 11:07 | disposition home or self-care (01) ==
PROVIDERS: PCP Internal Medicine; Visit Provider Internal Medicine Gastroenterology
PROC: 0DJD8ZZ Inspection of Lower Intestinal Tract, Via Natural or Artificial Opening Endoscopic (ICD-10-PCS; CPT 45378; principal; 2025-02-20 10:00)
DX: Z12.11 Encounter for screening for malignant neoplasm of colon (principal); D12.3 Benign neoplasm of transverse colon; D12.5 Benign neoplasm of sigmoid colon; K57.30 Diverticulosis of large intestine without perforation or abscess without bleeding; K64.8 Other hemorrhoids
CPT/HCPCS: 45385

== ENCOUNTER 2025-02-20 10:21 | Outpatient (NON) | payer MEDICARE, SELFPAY ==
--- NOTE | 2025-02-20 | S_PTH ---
PATIENT: Kevin Dow LOC: ANHLAB #:[id number] AGE/SX: 79/M ROOM: RE02/20/[address]: Luis Alberto Gaines MD : 1945 BED: DIS: 02/20/2025 SPEC #: [id number] RECD: 02/21/25 10:51 STATUS: [place]he[place] #: [id number] JDAA: 02/20/25 00:[address]: Luis Alberto Gaines DEPT: [facility] Surgical RECD BY: Laney Brody ENTERED: 02/21/25 10:52 SP TYPE: Surgical OTHR DR: Ronni ZhangMD Tissues: A - Colon Polypectomy B - Colon Polypectomy Procedures: Hematoxylin and Eosin Stain Gross and Microscopic Level 4
--- OUTSIDE RECORDS SUMMARY | 2025-02-21 10:41 | XMS_ITS | Clinical Summary ---
Author Organization [facility] Address [address] [place] [address] Care Team Providers Care Taxi Dancer Name Role Phone Unavailable Primary Care Provider Unavailabl e Source Comments [facility],non-owned Affiliates and Associated Physician Practices is amultiple site organization consisting of ambulatory clinics and hospital sitesin [place], [place], [place] and [place]. This disclosure is being madepursuant to the Care Everywhere program and may not contain all information available regarding this patient. 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
--- OUTSIDE RECORDS SUMMARY | 2025-02-21 10:41 | XMS_ITS | Continuity of Care Document ---
Author Organization Formerly [facility] Address [address] [place] [address] [address] [place] [address] Phone Care Team Providers Care Content Management Specialist Name Role Phone Iram Abraham Unavailable Unavailable Procedures Procedure Date Eye Exam & Treatment Refraction Eye Exam & Treatment Refraction Eye Exam & Treatment Refraction Advance Directives Directive Yes / No Effective Date File Name No Information Encounters Encounter Description Practice Location Reason(s) For Visit Diagnoses Date Provider Providers Copied on Encounter [facility], [address] [place] [address] [address], [place], [place], [id number], tel:[phone] [facility] No Information 6-201 0 Leigh Atwood [address] , [address], [place], [place], [facility], . tel:[phone] [facility], [address] [place] [address] [address], [place], [place], [id number], [place] tel:[phone] [facility] No Information 2-200 9 Leigh Atwood [address] , [address], [place], [place], [facility], [place]. tel:[phone] [facility], [address] [place] [address] [address], [place], [place], [id number], [place] tel:[phone] [facility] [address] No Information 0-200 8 Leigh Atwood [address], [place], [address], [place]. tel:[phone] Family History Family Member Type Diagnosis Age At Onset No Information Payers Payer name Insurance type Covered alliance party ID Authoriza tion(s) [place] [id number] Social History Type Description Quantity Date Captured [...]
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
--- OUTSIDE RECORDS SUMMARY | 2025-02-21 10:41 | XMS_ITS | Clinical Summary ---
Author Organization [facility] Address [address], [address] [address] Phone Care Team Providers Care Travel Information Center Supervisor Name Role Phone Ronni Zhang MD Primary Care Provider [phone] Ken Virk APRN, MEDICAL REVIEW COORDINATOR Unavailable [phone] Allergies Active Allergy Reactions Criticality Noted Date [...] Comments Blood Pressure 121/68 07/26/2024 10:19 AM [employer] Pulse 87 07/26/2024 10:19 AM [employer]ER Temperature - - Respiratory Rate 20 07/26/2024 10:19 AM [employer]ILL [employer]ANER Oxygen Saturation 97% 07/26/2024 10:19 AM [employer] STILL CLEANER Inhaled Oxygen Concentration - - Weight 95.3 kg (210 lb) 07/26/2024 10:19 AM [employer] STILL CLEANER Height 175.3 cm (5' 9) 07/26/2024 10:19 AM [employer] STILL CLEANER Body Mass Index 31.01 07/26/2024 10:19 AM COKE STILL CLEANER Plan of Treatment Upcoming Encounters Date Type Department Care Team (Late st Contact Info) Description 07/25/2025 1:15 PM [employer]ILL [employer]ER Office Visit [facility] [address] [place] [address] Ken Virk, ASSOCIATE PATHOLOGIST, MEDICAL REVIEW COORDINATOR [address] [place] [address] Health Maintenance Due Date Last Done Comments [...] to complete this topic Insurance [facility] Care Teams Travel Information Center Supervisor Relationship Specialty Start Date End Date Ronni Zhang MD PCP - General Internal Medicine 05/26/23 Ken Virk APRN, MEDICAL REVIEW COORDINATOR [address] [place] [address] Nurse Practitioner Advanced Practice Nurse 07/20/23
--- OUTSIDE RECORDS SUMMARY | 2025-02-21 10:41 | XMS_ITS | Continuity of Care Document ---
Author Organization [facility] Address [address] [place] [address] Phone Care Team Providers Care Cut Out Stitcher Name Role Phone Grayson Guy MD Unavailable Unavailable Allergies, Adverse Reactions, Alerts Substance Reaction Status Criticality PENICILLIN Rash Active No Information Medications Medication Instructions Dosage Effective Dates (start - stop) Status Comments Edgecomb 5 mg-325 mg tablet take 1- 2 [...] Providers Copied on Encounter [facility] , [address] [facility] [address], [place], [address], [place] tel:[phone] [facility] Trigger finger, left index finger 9 Malena Galicia. [address] [place], [place], [id number] . tel: [phone] [facility] , [address], [address], [place] tel: [phone] [facility] No Information January-0 9 Malena Galicia. [address] [facility], [place], [place], [id number] . tel: [phone] [facility] , [address], [address], tel: [phone] [facility] Trigger finger, left index finger Apr-2 9 Malena Galicia. [address] [facility], [place], [place], [id number] . tel: [phone] [facility] , [address], [address], [place] tel: [phone] [facility] Trigger finger, right index finger Dec- 9 Malena Galicia. [address] [facility], [place], [place], [id number] . tel: [phone] OFFICE/OUTPAT IENT VISIT EST [facility] , [address], [address], [place] tel: [phone] [facility] Trigger index finger of right hand Dec- 9 Malena Galicia. [address] [facility], [place], [place], [id number] . tel: [phone] OFFICE/OUTPAT IENT VISIT EST [facility] , [address], [address], [place] tel: [phone] [facility] Body mass index (BMI) 27.0-27.9, adultTrigger index finger of right handTrigger ring finger of right handTrigger finger of left thumbTrigger index finger of left hand 8 Malena Galicia. [address] [place], [place], [id number] . tel: [phone] OFFICE/OUTPAT IENT VISIT NEW [facility] , [address], [address], [place] tel: [phone] [facility] Pain in right shoulderPain in left shoulderPain in right hipStatus post replacement of right shoulder joint 8 Barrie Johns. [address], [place], [place], [id number] . tel: [phone] Referring Provider: Ronni Polanco, [address], [place], [address] . tel:[phone] Family History Family Member Type Diagnosis Age At Onset Mother Problem (finding) hypertension Payers Payer name Insurance type Covered democrat ID Authoriza tihao(s) AARP Medicare Complete PPO E2 [id number] Social History Type Description Quantity Date Captured [...] RT ordered Future Order: Lab Order ZULEMA ([id number]), O rdered on: Ordered Future Order: Lab Order CCP Anti bodies IgG/IgA ([id number]), Ordered on: Ordered Future Order: Lab Order C-Reacti ve Protein, Quant ([id number]), Ordered on: Ordered Future Order: Lab Order Rheumato id Factor ([id number]), Ordered on: Ordered Future Order: Lab Order Sed rate ([id number]), Ordered on: Ordered History Of Present Illness [...]
== END 2025-02-20 10:22 | disposition home or self-care (01) ==
LOC: ANHLAB 02-21 10:21
PROVIDERS: PCP Internal Medicine; Visit Provider Internal Medicine Gastroenterology
DX: Z12.11 Encounter for screening for malignant neoplasm of colon (principal); Z86.0100 Personal history of colon polyps, unspecified
CPT/HCPCS: 88305